=== PATIENT | female | born 1945 | race Caucasian/White ===

== ENCOUNTER → 2019-01-18 12:03 | Outpatient (CLI) | payer OTHER, SELFPAY ==
--- NOTE | 2019-01-18 | DI.MG.S_ITS ---
BILATERAL DIGITAL DIAGNOSTIC MAMMOGRAM 3D/2D WITH AUGMENTATION: 01/18/2019 CLINICAL: Patient returns for 6 month follow up of right breast, due for bilateral exam. Comparison is made to exams dated: 04/20/2018 mammogram, 10/20/2017 mammogram, and 10/06/2017 mammogram - [facility]. There are scattered fibroglandular elements in both breasts. Prior 3 mm nodule in the right breast has resolved. Bilateral subglandular silicone implants are present. No significant masses, calcifications, or other findings are seen in either breast. IMPRESSION: Resolution of previously seen right breast nodule. There is no mammographic evidence of malignancy. A 1 year screening mammogram is recommended. Findings and recommendations conveyed to the patient. This exam was interpreted at Station ID: [id number]. NOTE: For mammograms, a report in lay terms will be sent to the patient. Approximately 15% of breast malignancies will not be visualized mammographically. In the management of a palpable breast mass, a negative mammogram must not discourage biopsy of a clinically suspicious lesion. Electronically Signed By: Janelle marshall/:01/18/2019 14:00:02 letter sent: Normal Exam ACR BI-RADS Category 2: Benign Finding(s) 3342F
== END ==
PROVIDERS: Visit Provider Specialist
DX: R92.8 Other abnormal and inconclusive findings on diagnostic imaging of breast (principal); Z98.82 Breast implant status
CPT/HCPCS: 77066; G0279